=== PATIENT | male | born 1960 | race Caucasian/White ===

== ENCOUNTER 2024-04-05 06:12 | Day surgery (SDC) | payer MEDICARE, SELFPAY ==
[2024-03-19 11:10] LABS: Hematocrit 44.8 % (39.0-52.0); Hemoglobin 14.9 g/dL (13.0-18.0); Mean Corp Hgb Conc. 33.3 g/dL (33.0-37.0); Mean Corpuscular Volume 93.3 fL (80.0-94.0); Mean Platelet Volume 8.6 fL (7.4-10.4); Platelet Count 202 10^3/uL (130-400); Red Cell Dist. Width 12.1 % (11.5-14.5); White Blood Cell Count 6.4 10^3/uL (4.8-10.8)
[2024-03-19 11:35] LABS: ALT (SGPT) 41 U/L (0-50); AST (SGOT) 43 U/L (17-59); Albumin 4.6 g/dl (3.5-5.0); Alkaline Phosphatase 76 U/L (38-126); Blood Urea Nitrogen 23 mg/dl (9-20); Calcium 9.3 mg/dl (8.4-10.2); Carbon Dioxide 29 mmol/L (22-30); Chloride 100 mmol/L (98-107); Glucose 99 mg/dl (70-99); Potassium 4.7 mmol/L (3.5-5.1); Sodium 139 mmol/L (135-145); Total Bilirubin 1.2 mg/dl (0.2-1.3); Total Protein 7.3 g/dl (6.3-8.2); eGFR > 60.00
[2024-03-19 12:02] LABS: Glycohemoglobin (HgbA1c) 5.9 % (4.0-5.6)
[2024-03-19 13:53] VITALS: BMI 34.7
--- NOTE | 2024-03-23 12:10 | VNURNOTE ---
Patient is scheduled for an elective L MEENAKSHI on 04/05/24- he is a same day patient with Dr Deng. Spoke with patient prior to surgery. Introduced role of [facility] Liaison. Patient reports that he lives with his in a MULTI story home.
There are 2 steps to enter and a flight of steps to the second floor.
He has a first floor set up. He has a raised toilet seat, hip kit, DVT proph machine, cane and rolling walker.
PCP is Dr Farah.
Discussed [facility] joint protocol and post surgical plans.
Reviewed that he will have [facility] services initially and will then start outpatient PT.
Patient selects [facility] for his home care needs and [facility]. Scheduled for 04/07.
Patient is in agreement with plan and states that his will be home with him. Advised to bring RW with him day of surgery. Referral placed in [facility].
Plan: [facility] per [facility] joint protocol 04/05 then outpt PT on 04/07
[2024-03-25 13:33] VITALS: BMI 34.7
[2024-04-05] VITALS (11 sets, daily range): BP systolic 102–148; BP diastolic 62–94; PULSE 68; O2SAT 95; BMI 34.7
[2024-04-05] MEDS: VANCOCIN 530 MG IV (07:01)
[2024-04-05] MEDS: CELEBREX 200 MG PO (07:19)
[2024-04-05] MEDS: TYLENOL 650 MG PO (07:19)
[2024-04-05] MEDS: BACTROBAN NASAL 1 GRAM NASAL (07:20)
[2024-04-05] MEDS: NORMOSOL-R/PLASMALYTE-A 1000 IV (07:20)
[2024-04-05] MEDS: ANCEF 5 IV (12:12)
== END 2024-04-05 12:40 | disposition home health service (06) ==
LOC: SDS 06:12
PROVIDERS: ATTENDING PHYSICIAN Specialist; FAMILY PHYSICIAN Family Medicine; REFERRING PHYSICIAN Internal Medicine Cardiovascular Disease
DX: M16.12 Unilateral primary osteoarthritis, left hip (principal); E66.9 Obesity, unspecified; I10 Essential (primary) hypertension; E78.5 Hyperlipidemia, unspecified; M54.12 Radiculopathy, cervical region; I25.10 Atherosclerotic heart disease of native coronary artery without angina pectoris; I25.2 Old myocardial infarction; Z68.34 Body mass index [BMI] 34.0-34.9, adult; Z85.828 Personal history of other malignant neoplasm of skin; Z92.3 Personal history of irradiation; Z90.49 Acquired absence of other specified parts of digestive tract; Z79.82 Long term (current) use of aspirin; Z79.899 Other long term (current) drug therapy; Z95.5 Presence of coronary angioplasty implant and graft
CPT/HCPCS: 27130; 73502; 36415; 80053; 83036; 85027; 87070; 87147; 97116; 97162

== ENCOUNTER 2024-04-23 09:24 | Outpatient (RCR) | payer MEDICARE, SELFPAY | END 2024-04-23 23:59 | disposition home or self-care (01) | LOC: RPT 09:24 | PROVIDERS: ATTENDING PHYSICIAN Physician Assistant Medical; FAMILY PHYSICIAN Family Medicine | DX: Z47.1 Aftercare following joint replacement surgery (principal); M62.81 Muscle weakness (generalized); R26.89 Other abnormalities of gait and mobility; Z73.6 Limitation of activities due to disability; M25.552 Pain in left hip; Z96.642 Presence of left artificial hip joint | CPT/HCPCS: 97110; 97112; 97162; 97530 ==

== ENCOUNTER 2024-05-21 07:30 | Outpatient (RCR) | payer MEDICARE, SELFPAY | END 2024-05-21 12:12 | disposition home or self-care (01) | LOC: RPT 07:30 | PROVIDERS: ATTENDING PHYSICIAN Physician Assistant Medical; FAMILY PHYSICIAN Family Medicine | DX: Z47.1 Aftercare following joint replacement surgery (principal); M62.81 Muscle weakness (generalized); R26.89 Other abnormalities of gait and mobility; Z73.6 Limitation of activities due to disability; M25.552 Pain in left hip; Z96.642 Presence of left artificial hip joint | CPT/HCPCS: 97110; 97112; 97140; 97530 ==

== ENCOUNTER → 2024-06-22 11:05 | Outpatient (REF) | payer MEDICARE, SELFPAY | LOC: DHSLP 11:05 | PROVIDERS: ATTENDING PHYSICIAN Family Medicine | DX: G47.33 Obstructive sleep apnea (adult) (pediatric) (principal); R09.02 Hypoxemia | CPT/HCPCS: 95806 ==

== ENCOUNTER → 2024-11-10 09:26 | Outpatient (REF) | payer MEDICARE, SELFPAY ==
[2024-11-10 10:41] LABS: Blood Urea Nitrogen 18 mg/dl (9-20); Calcium 9.4 mg/dl (8.4-10.2); Carbon Dioxide 29 mmol/L (22-30); Chloride 105 mmol/L (98-107); Glucose 92 mg/dl (70-99); Potassium 4.4 mmol/L (3.5-5.1); Sodium 140 mmol/L (135-145); eGFR > 60.00
== END ==
LOC: SDSPAT 09:26
PROVIDERS: ATTENDING PHYSICIAN Specialist; FAMILY PHYSICIAN Family Medicine
DX: S83.241A Other tear of medial meniscus, current injury, right knee, initial encounter (principal); S83.241D Other tear of medial meniscus, current injury, right knee, subsequent encounter; M17.11 Unilateral primary osteoarthritis, right knee; X58.XXXA Exposure to other specified factors, initial encounter; Z01.818 Encounter for other preprocedural examination
CPT/HCPCS: 36415; 80048; 87070; 93005

== ENCOUNTER 2024-11-15 06:04 | Day surgery (SDC) | payer MEDICARE, SELFPAY ==
[2024-11-10 14:20] VITALS: BMI 31.3
--- NOTE | 2024-11-11 16:00 | PTCARENOTE ---
Abnormal ECG done 11/10/24, reviewed by Dr Saucedo, no further intervention requested.
[2024-11-15] VITALS (8 sets, daily range): BP systolic 116–134; BP diastolic 68–97; BMI 31.3
[2024-11-15] MEDS: TYLENOL 1000 MG PO (10:19)
[2024-11-15] MEDS: CELEBREX 200 MG PO (10:19)
[2024-11-15] MEDS: NORMOSOL-R/PLASMALYTE-A 1000 IV (10:19)
[2024-11-15] MEDS: VANCOCIN 530 MG IV (10:45)
== END 2024-11-15 15:05 | disposition home or self-care (01) ==
LOC: SDS 06:04
PROVIDERS: ATTENDING PHYSICIAN Specialist; FAMILY PHYSICIAN Family Medicine
DX: S83.241A Other tear of medial meniscus, current injury, right knee, initial encounter (principal); M17.11 Unilateral primary osteoarthritis, right knee; X58.XXXA Exposure to other specified factors, initial encounter
CPT/HCPCS: 29881